=== PATIENT | female | born 1975 | race Caucasian/White ===

== ENCOUNTER 2020-01-31 12:17 | Outpatient (REF) | payer OTHER, SELFPAY ==
[2020-01-31 13:15] LABS: Alanine Aminotransferase 49 U/L (0-31); Albumin Level 3.5 g/dL (3.5-5.0); Alkaline Phosphatase 198 U/L (39-117); Anion Gap 15 (12-20); Aspartate Amino Transferase 40 U/L (5-31); Bilirubin Total 0.4 mg/dL (0.0-1.0); Blood Urea Nitrogen 29 mg/dL (9-16); Calcium 9.5 mg/dL (8.4-10.2); Carbon Dioxide 26 mmol/L (22-29); Chloride 96 mmol/L (96-108); Estimated Glomerular Filt Rate > 60; Glucose Random 98 mg/dL (60-115); Magnesium 1.9 mg/dL (1.6-2.6); Potassium 5.1 mmol/l (3.3-5.1); Sodium 132 mmol/L (135-145); Total Protein 7.6 g/dL (6.5-8.0); Triglycerides 169 mg/dL
[2020-02-01 17:57] LABS: Phosphorus 4.9 mg/dL (2.7-4.5)
== END 2020-01-31 12:18 | disposition home or self-care (01) ==
LOC: HO.HVNA 12:17
PROVIDERS: Visit Provider Physician Assistant Medical
DX: Z79.899 Other long term (current) drug therapy (principal)
CPT/HCPCS: 80053; 83735; 84100; 84134; 84478

== ENCOUNTER → 2020-02-15 13:19 | Outpatient (BNVA) | payer OTHER, SELFPAY | PROVIDERS: PCP Physician Assistant; Referring Provider Physician Assistant; Visit Provider Family Medicine Adult Medicine | DX: Z87.81 Personal history of (healed) traumatic fracture (principal); Z93.0 Tracheostomy status; Z93.1 Gastrostomy status; Z79.891 Long term (current) use of opiate analgesic; Z98.890 Other specified postprocedural states | CPT/HCPCS: 99212 ==

== ENCOUNTER → 2020-02-16 12:45 | Outpatient (BNVA) | payer SELFPAY | PROVIDERS: PCP Physician Assistant ==

== ENCOUNTER 2020-02-28 13:08 | Outpatient (REF) | payer OTHER, SELFPAY ==
[2020-02-28 14:09] LABS: Alanine Aminotransferase 59 U/L (0-31); Albumin Level 2.5 g/dL (3.5-5.0); Alkaline Phosphatase 261 U/L (39-117); Anion Gap 11 (12-20); Aspartate Amino Transferase 31 U/L (5-31); Bilirubin Total 0.6 mg/dL (0.0-1.0); Blood Urea Nitrogen 17 mg/dL (9-16); Calcium 7.8 mg/dL (8.4-10.2); Carbon Dioxide 23 mmol/L (22-29); Chloride 106 mmol/L (96-108); Estimated Glomerular Filt Rate > 60; Glucose Random 109 mg/dL (60-115); Potassium 3.7 mmol/l (3.3-5.1); Sodium 136 mmol/L (135-145); Triglycerides 124 mg/dL
[2020-02-29 12:31] LABS: Magnesium 1.7 mg/dL (1.6-2.6)
== END 2020-02-28 13:09 | disposition home or self-care (01) ==
LOC: HO.LNP 13:08
PROVIDERS: Visit Provider Surgery
DX: G72.81 Critical illness myopathy (principal)
CPT/HCPCS: 80053; 83735; 84100; 84134; 84478

== ENCOUNTER 2020-03-21 15:15 | Outpatient (REF) | payer OTHER, SELFPAY ==
[2020-03-21 15:24] LABS: MANUAL DIFF FLAG NO
[2020-03-21 15:42] LABS: Basophils Absolute Auto 0.1 X10*3/uL (0.0-0.2); Basophils Percent Auto 1.1 % (0-2); Eosinophils Absolute Auto 0.4 X10*3/uL (0.0-0.4); Eosinophils Percent Auto 4.4 % (0-4); Hemoglobin 8.8 g/dl (12.0-16.0); Imm Gran Abs Auto 0.02 X10*3/uL (0.00-0.03); Imm Gran Pct Auto 0.2 % (0.0-0.4); Lymphocytes Absolute Auto 3.6 X10*3/uL (1.2-4.9); Lymphocytes Percent Auto 39.6 % (20-40); Mean Corpuscular HGB Conc 31.4 g/dl (31.0-35.0); Mean Corpuscular Hemoglobin 28.3 pg (27.0-33.0); Mean Platelet Volume 12.6 fL (9.4-12.3); Monocytes Absolute Auto 0.6 X10*3/uL (0.1-1.2); Monocytes Percent Auto 6.2 % (2-11); Neutrophils Absolute Auto 4.4 X10*3/uL (2.0-8.3); Neutrophils Percent Auto 48.5 % (45-73); Platelet Count 303 X10*3/uL (160-400); Red Blood Count 3.11 X10*6/uL (4.20-5.50); Red Cell Distribution Width 18.6 % (11.0-16.0); White Blood Count 9.1 X10*3/uL (4.8-10.8)
[2020-03-21 16:01] LABS: Alanine Aminotransferase 34 U/L (0-31); Albumin Level 3.1 g/dL (3.5-5.0); Alkaline Phosphatase 237 U/L (39-117); Anion Gap 11 (12-20); Aspartate Amino Transferase 39 U/L (5-31); Bilirubin Direct 0.3 mg/dL (0.0-0.5); Bilirubin Total 0.4 mg/dL (0.0-1.0); Blood Urea Nitrogen 30 mg/dL (9-16); C Reactive Protein 0.68 mg/dL (< or = 0.50); Calcium 10.4 mg/dL (8.4-10.2); Carbon Dioxide 22 mmol/L (22-29); Chloride 105 mmol/L (96-108); Cholesterol 105 mg/dL; Estimated Glomerular Filt Rate > 60; Glucose Random 87 mg/dL (60-115); HDL Cholesterol 15 mg/dL; LDL Cholesterol Calculated 57 mg/dl; Magnesium 1.8 mg/dL (1.6-2.6); Potassium 4.6 mmol/l (3.3-5.1); Sodium 133 mmol/L (135-145); Total Protein 8.5 g/dL (6.5-8.0); Triglycerides 167 mg/dL
[2020-03-21 16:05] LABS: Vancomycin Trough 14.2 mcg/mL (10.0-20.0)
== END 2020-03-21 15:16 | disposition home or self-care (01) ==
LOC: HO.HVNA 15:15
PROVIDERS: Visit Provider Internal Medicine
DX: I33.0 Acute and subacute infective endocarditis (principal); M25.18 Fistula, other specified site; E43 Unspecified severe protein-calorie malnutrition
CPT/HCPCS: 36415; 80053; 80061; 80076; 80202; 82248; 83735; 84134; 85025; 86140

== ENCOUNTER 2020-03-30 15:04 | Outpatient (REF) | payer OTHER, SELFPAY ==
[2020-03-30 15:32] LABS: Basophils Absolute Auto 0.1 X10*3/uL (0.0-0.2); Eosinophils Absolute Auto 0.3 X10*3/uL (0.0-0.4); Eosinophils Percent Auto 4.3 % (0-4); Hematocrit 31.8 % (37-47); Hemoglobin 9.8 g/dl (12.0-16.0); Imm Gran Abs Auto 0.01 X10*3/uL (0.00-0.03); Imm Gran Pct Auto 0.1 % (0.0-0.4); Lymphocytes Percent Auto 43.8 % (20-40); Mean Corpuscular HGB Conc 30.8 g/dl (31.0-35.0); Mean Corpuscular Hemoglobin 27.8 pg (27.0-33.0); Mean Corpuscular Volume 90.3 fL (80-98); Monocytes Absolute Auto 0.4 X10*3/uL (0.1-1.2); Monocytes Percent Auto 6.2 % (2-11); Neutrophils Percent Auto 44.6 % (45-73); Platelet Count 248 X10*3/uL (160-400); Red Blood Count 3.52 X10*6/uL (4.20-5.50); Red Cell Distribution Width 18.1 % (11.0-16.0); SCAN SMEAR FLAG 1; White Blood Count 6.7 X10*3/uL (4.8-10.8)
[2020-03-30 15:33] LABS: MANUAL DIFF FLAG NO; PLT ABN DIST 1
[2020-03-30 16:04] LABS: Alanine Aminotransferase 25 U/L (0-31); Albumin Level 3.2 g/dL (3.5-5.0); Alkaline Phosphatase 188 U/L (39-117); Anion Gap 9 (12-20); Aspartate Amino Transferase 26 U/L (5-31); Bilirubin Direct 0.2 mg/dL (0.0-0.5); Bilirubin Total 0.3 mg/dL (0.0-1.0); Blood Urea Nitrogen 26 mg/dL (9-16); C Reactive Protein 0.48 mg/dL (< or = 0.50); Calcium 10.3 mg/dL (8.4-10.2); Carbon Dioxide 25 mmol/L (22-29); Chloride 104 mmol/L (96-108); Cholesterol 114 mg/dL; Estimated Glomerular Filt Rate > 60; Glucose Random 94 mg/dL (60-115); HDL Cholesterol 17 mg/dL; LDL Cholesterol Calculated 66 mg/dl; Magnesium 1.6 mg/dL (1.6-2.6); Phosphorus 3.8 mg/dL (2.7-4.5); Potassium 4.4 mmol/l (3.3-5.1); Sodium 134 mmol/L (135-145); Total Protein 8.1 g/dL (6.5-8.0); Triglycerides 158 mg/dL
[2020-03-30 16:06] LABS: Vancomycin Trough 11.1 mcg/mL (10.0-20.0)
== END 2020-03-30 15:05 | disposition home or self-care (01) ==
LOC: HO.HVNA 15:04
PROVIDERS: Visit Provider Surgery
DX: E46 Unspecified protein-calorie malnutrition (principal)
CPT/HCPCS: 36415; 80053; 80061; 80076; 80202; 82248; 83735; 84100; 84134; 85025; 86140

== ENCOUNTER 2020-04-03 14:59 | Outpatient (REF) | payer OTHER, SELFPAY ==
[2020-04-03 15:06] LABS: MANUAL DIFF FLAG NO
[2020-04-03 15:12] LABS: Basophils Absolute Auto 0.1 X10*3/uL (0.0-0.2); Basophils Percent Auto 1.3 % (0-2); Eosinophils Absolute Auto 0.2 X10*3/uL (0.0-0.4); Eosinophils Percent Auto 4.3 % (0-4); Hematocrit 32.5 % (37-47); Hemoglobin 10.1 g/dl (12.0-16.0); Imm Gran Abs Auto 0.01 X10*3/uL (0.00-0.03); Imm Gran Pct Auto 0.2 % (0.0-0.4); Lymphocytes Percent Auto 37.9 % (20-40); Mean Corpuscular HGB Conc 31.1 g/dl (31.0-35.0); Mean Corpuscular Hemoglobin 28.6 pg (27.0-33.0); Mean Corpuscular Volume 92.1 fL (80-98); Mean Platelet Volume 13.4 fL (9.4-12.3); Monocytes Absolute Auto 0.4 X10*3/uL (0.1-1.2); Neutrophils Absolute Auto 2.6 X10*3/uL (2.0-8.3); Neutrophils Percent Auto 49.3 % (45-73); Platelet Count 175 X10*3/uL (160-400); Red Blood Count 3.53 X10*6/uL (4.20-5.50); Red Cell Distribution Width 17.6 % (11.0-16.0); White Blood Count 5.3 X10*3/uL (4.8-10.8)
[2020-04-03 15:50] LABS: Alanine Aminotransferase 26 U/L (0-31); Albumin Level 3.4 g/dL (3.5-5.0); Alkaline Phosphatase 204 U/L (39-117); Anion Gap 11 (12-20); Aspartate Amino Transferase 27 U/L (5-31); Bilirubin Total 0.3 mg/dL (0.0-1.0); Blood Urea Nitrogen 28 mg/dL (9-16); C Reactive Protein 0.43 mg/dL (< or = 0.50); Carbon Dioxide 24 mmol/L (22-29); Chloride 104 mmol/L (96-108); Estimated Glomerular Filt Rate > 60; Glucose Random 95 mg/dL (60-115); Potassium 4.6 mmol/l (3.3-5.1); Sodium 134 mmol/L (135-145); Total Protein 8.2 g/dL (6.5-8.0)
[2020-04-03 15:57] LABS: Calcium 10.6 mg/dL (8.4-10.2)
[2020-04-04 18:27] LABS: Magnesium 1.8 mg/dL (1.6-2.6); Phosphorus 3.9 mg/dL (2.7-4.5); Triglycerides 151 mg/dL
== END 2020-04-03 15:00 | disposition home or self-care (01) ==
LOC: HO.LNP 14:59
PROVIDERS: Visit Provider Surgery
DX: I33.0 Acute and subacute infective endocarditis (principal); I26.90 Septic pulmonary embolism without acute cor pulmonale; A49.02 Methicillin resistant Staphylococcus aureus infection, unspecified site; E03.9 Hypothyroidism, unspecified; M25.50 Pain in unspecified joint
CPT/HCPCS: 80053; 83735; 84100; 84134; 84478; 85025; 86140

== ENCOUNTER → 2020-04-04 14:23 | Outpatient (BNVA) | payer OTHER, SELFPAY | PROVIDERS: PCP Physician Assistant; Visit Provider Family Medicine Adult Medicine | DX: M96.1 Postlaminectomy syndrome, not elsewhere classified (principal) | CPT/HCPCS: 99212 ==

== ENCOUNTER 2020-04-05 15:35 | Outpatient (REF) | payer OTHER, SELFPAY ==
[2020-04-05 16:15] LABS: C Reactive Protein 0.47 mg/dL (< or = 0.50)
[2020-04-05 16:19] LABS: Vancomycin Trough 11.2 mcg/mL (10.0-20.0)
[2020-04-06 11:17] LABS: Anion Gap 14 (12-20); Blood Urea Nitrogen 24 mg/dL (9-16); Carbon Dioxide 18 mmol/L (22-29); Chloride 106 mmol/L (96-108); Estimated Glomerular Filt Rate > 60; Glucose Random 77 mg/dL (60-115); Potassium 4.7 mmol/l (3.3-5.1); Sodium 133 mmol/L (135-145)
== END 2020-04-05 15:36 | disposition home or self-care (01) ==
LOC: HO.LNP 15:35
PROVIDERS: Visit Provider Internal Medicine
DX: I33.0 Acute and subacute infective endocarditis (principal)
CPT/HCPCS: 80051; 80202; 82565; 82947; 84520; 86140

== ENCOUNTER 2020-04-10 15:38 | Outpatient (REF) | payer OTHER, SELFPAY ==
[2020-04-10 15:49] LABS: Eosinophils Absolute Auto 0.2 X10*3/uL (0.0-0.4); Imm Gran Abs Auto 0.01 X10*3/uL (0.00-0.03); Imm Gran Pct Auto 0.2 % (0.0-0.4); MANUAL DIFF FLAG SCAN; Red Cell Distribution Width 16.6 % (11.0-16.0); SCAN SMEAR FLAG 1
[2020-04-10 15:51] LABS: Basophils Absolute Auto 0.1 X10*3/uL (0.0-0.2); Basophils Percent Auto 1.3 % (0-2); Eosinophils Percent Auto 4.4 % (0-4); Hematocrit 33.4 % (37-47); Hemoglobin 10.5 g/dl (12.0-16.0); Lymphocytes Absolute Auto 2.2 X10*3/uL (1.2-4.9); Lymphocytes Percent Auto 44.9 % (20-40); Mean Corpuscular HGB Conc 31.4 g/dl (31.0-35.0); Mean Corpuscular Hemoglobin 28.6 pg (27.0-33.0); Monocytes Absolute Auto 0.3 X10*3/uL (0.1-1.2); Monocytes Percent Auto 5.8 % (2-11); Neutrophils Absolute Auto 2.1 X10*3/uL (2.0-8.3); Neutrophils Percent Auto 43.4 % (45-73); Platelet Count 170 X10*3/uL (160-400); Red Blood Count 3.67 X10*6/uL (4.20-5.50); White Blood Count 4.8 X10*3/uL (4.8-10.8)
[2020-04-10 16:05] LABS: PLT ABN DIST 1
[2020-04-10 16:10] LABS: SLIDE REVIEW VERIFIED
[2020-04-10 16:30] LABS: Alanine Aminotransferase 15 U/L (0-31); Albumin Level 3.2 g/dL (3.5-5.0); Alkaline Phosphatase 178 U/L (39-117); Anion Gap 12 (12-20); Aspartate Amino Transferase 20 U/L (5-31); Bilirubin Direct 0.2 mg/dL (0.0-0.5); Bilirubin Total 0.3 mg/dL (0.0-1.0); Blood Urea Nitrogen 27 mg/dL (9-16); Calcium 9.5 mg/dL (8.4-10.2); Carbon Dioxide 27 mmol/L (22-29); Chloride 102 mmol/L (96-108); Estimated Glomerular Filt Rate > 60; Glucose Random 89 mg/dL (60-115); Magnesium 1.9 mg/dL (1.6-2.6); Potassium 4.6 mmol/l (3.3-5.1); Sodium 136 mmol/L (135-145); Total Protein 7.4 g/dL (6.5-8.0); Triglycerides 125 mg/dL
[2020-04-11 19:21] LABS: C Reactive Protein 0.45 mg/dL (< or = 0.50); Phosphorus 4.4 mg/dL (2.7-4.5)
== END 2020-04-10 15:39 | disposition home or self-care (01) ==
LOC: HO.LNP 15:38
PROVIDERS: Visit Provider Surgery
DX: I33.0 Acute and subacute infective endocarditis (principal)
CPT/HCPCS: 80053; 80076; 82248; 83735; 84100; 84134; 84478; 85025; 86140

== ENCOUNTER 2020-04-13 15:58 | Outpatient (REF) | payer OTHER, SELFPAY ==
[2020-04-13 17:00] LABS: T4 Thyroxine 6.7 ug/dL (4.5-12.0); Thyroid Stimulating Hormone 3.65 uIU/mL (0.32-4.0)
[2020-04-14 14:06] LABS: Triiodothyronine T3 Total 123 ng/dL (76-181)
== END 2020-04-13 15:59 | disposition home or self-care (01) ==
LOC: HO.LNP 15:58
PROVIDERS: Referring Provider Internal Medicine; Visit Provider Physician Assistant
DX: I33.0 Acute and subacute infective endocarditis (principal); A49.02 Methicillin resistant Staphylococcus aureus infection, unspecified site; I26.90 Septic pulmonary embolism without acute cor pulmonale
CPT/HCPCS: 84436; 84443; 84480

== ENCOUNTER 2020-04-17 17:06 | Outpatient (REF) | payer OTHER, SELFPAY ==
[2020-04-17 17:15] LABS: Hematocrit 34.6 % (37-47); Imm Gran Abs Auto 0.01 X10*3/uL (0.00-0.03); Imm Gran Pct Auto 0.2 % (0.0-0.4); MANUAL DIFF FLAG SCAN; Mean Corpuscular HGB Conc 31.8 g/dl (31.0-35.0); Mean Platelet Volume 13.2 fL (9.4-12.3); Neutrophils Absolute Auto 2.8 X10*3/uL (2.0-8.3); SCAN SMEAR FLAG 1
[2020-04-17 17:17] LABS: Basophils Percent Auto 0.7 % (0-2); Eosinophils Absolute Auto 0.1 X10*3/uL (0.0-0.4); Eosinophils Percent Auto 2.5 % (0-4); Lymphocytes Absolute Auto 2.3 X10*3/uL (1.2-4.9); Lymphocytes Percent Auto 40.9 % (20-40); Mean Corpuscular Hemoglobin 28.1 pg (27.0-33.0); Mean Corpuscular Volume 88.5 fL (80-98); Monocytes Absolute Auto 0.3 X10*3/uL (0.1-1.2); Monocytes Percent Auto 5.5 % (2-11); Neutrophils Percent Auto 50.2 % (45-73); Platelet Count 195 X10*3/uL (160-400); Red Blood Count 3.91 X10*6/uL (4.20-5.50); Red Cell Distribution Width 15.3 % (11.0-16.0); White Blood Count 5.6 X10*3/uL (4.8-10.8)
[2020-04-17 17:18] LABS: PLT ABN DIST 1
[2020-04-17 17:19] LABS: SLIDE REVIEW VERIFIED
[2020-04-17 17:58] LABS: Alanine Aminotransferase 9 U/L (0-31); Albumin Level 3.2 g/dL (3.5-5.0); Alkaline Phosphatase 168 U/L (39-117); Anion Gap 14 (12-20); Aspartate Amino Transferase 15 U/L (5-31); Bilirubin Direct 0.2 mg/dL (0.0-0.5); Bilirubin Total 0.4 mg/dL (0.0-1.0); Blood Urea Nitrogen 24 mg/dL (9-16); Calcium 9.6 mg/dL (8.4-10.2); Carbon Dioxide 28 mmol/L (22-29); Chloride 97 mmol/L (96-108); Estimated Glomerular Filt Rate > 60; Glucose Random 83 mg/dL (60-115); Magnesium 1.8 mg/dL (1.6-2.6); Phosphorus 4.9 mg/dL (2.7-4.5); Potassium 4.3 mmol/l (3.3-5.1); Sodium 135 mmol/L (135-145); Total Protein 7.6 g/dL (6.5-8.0); Triglycerides 130 mg/dL
== END 2020-04-17 17:07 | disposition home or self-care (01) ==
LOC: HO.LNP 17:06
PROVIDERS: Visit Provider Surgery
DX: I33.0 Acute and subacute infective endocarditis (principal)
CPT/HCPCS: 80053; 80076; 82248; 83735; 84100; 84134; 84478; 85025

== ENCOUNTER 2020-04-24 14:06 | Outpatient (REF) | payer OTHER, SELFPAY ==
[2020-04-24 14:11] LABS: MANUAL DIFF FLAG NO
[2020-04-24 14:33] LABS: Basophils Absolute Auto 0.1 X10*3/uL (0.0-0.2); Basophils Percent Auto 0.9 % (0-2); Eosinophils Absolute Auto 0.2 X10*3/uL (0.0-0.4); Eosinophils Percent Auto 3.4 % (0-4); Hematocrit 32.8 % (37-47); Hemoglobin 10.2 g/dl (12.0-16.0); Imm Gran Abs Auto 0.01 X10*3/uL (0.00-0.03); Imm Gran Pct Auto 0.2 % (0.0-0.4); Lymphocytes Percent Auto 34.9 % (20-40); Mean Corpuscular HGB Conc 31.1 g/dl (31.0-35.0); Mean Corpuscular Hemoglobin 27.9 pg (27.0-33.0); Mean Corpuscular Volume 89.6 fL (80-98); Mean Platelet Volume 12.9 fL (9.4-12.3); Monocytes Absolute Auto 0.4 X10*3/uL (0.1-1.2); Neutrophils Absolute Auto 3.2 X10*3/uL (2.0-8.3); Neutrophils Percent Auto 54.6 % (45-73); Platelet Count 217 X10*3/uL (160-400); Red Blood Count 3.66 X10*6/uL (4.20-5.50); Red Cell Distribution Width 14.7 % (11.0-16.0); White Blood Count 5.9 X10*3/uL (4.8-10.8)
[2020-04-24 15:09] LABS: Alanine Aminotransferase < 6 U/L (0-31); Albumin Level 3.2 g/dL (3.5-5.0); Alkaline Phosphatase 151 U/L (39-117); Anion Gap 11 (12-20); Aspartate Amino Transferase 9 U/L (5-31); Bilirubin Direct 0.3 mg/dL (0.0-0.5); Bilirubin Total 0.4 mg/dL (0.0-1.0); Blood Urea Nitrogen 28 mg/dL (9-16); Calcium 8.6 mg/dL (8.4-10.2); Carbon Dioxide 29 mmol/L (22-29); Chloride 101 mmol/L (96-108); Estimated Glomerular Filt Rate > 60; Glucose Random 80 mg/dL (60-115); Potassium 4.9 mmol/l (3.3-5.1); Sodium 136 mmol/L (135-145); Total Protein 7.3 g/dL (6.5-8.0); Triglycerides 111 mg/dL
== END 2020-04-24 14:07 | disposition home or self-care (01) ==
LOC: HO.LNP 14:06
PROVIDERS: Visit Provider Surgery
DX: I33.0 Acute and subacute infective endocarditis (principal)
CPT/HCPCS: 80053; 80076; 82248; 83735; 84134; 84478; 85025

== ENCOUNTER 2020-05-03 13:11 | Outpatient (REF) | payer OTHER, SELFPAY ==
[2020-05-03 13:14] LABS: MANUAL DIFF FLAG NO
[2020-05-03 13:21] LABS: Basophils Percent Auto 0.8 % (0-2); Eosinophils Absolute Auto 0.1 X10*3/uL (0.0-0.4); Eosinophils Percent Auto 2.2 % (0-4); Hematocrit 30.6 % (37-47); Hemoglobin 9.8 g/dl (12.0-16.0); Imm Gran Abs Auto 0.01 X10*3/uL (0.00-0.03); Imm Gran Pct Auto 0.2 % (0.0-0.4); Lymphocytes Absolute Auto 1.7 X10*3/uL (1.2-4.9); Lymphocytes Percent Auto 33.7 % (20-40); Mean Corpuscular Hemoglobin 27.6 pg (27.0-33.0); Mean Corpuscular Volume 86.2 fL (80-98); Mean Platelet Volume 11.9 fL (9.4-12.3); Monocytes Absolute Auto 0.3 X10*3/uL (0.1-1.2); Monocytes Percent Auto 6.5 % (2-11); Neutrophils Absolute Auto 2.8 X10*3/uL (2.0-8.3); Neutrophils Percent Auto 56.6 % (45-73); Platelet Count 222 X10*3/uL (160-400); Red Blood Count 3.55 X10*6/uL (4.20-5.50); Red Cell Distribution Width 13.9 % (11.0-16.0); White Blood Count 4.9 X10*3/uL (4.8-10.8)
[2020-05-03 14:44] LABS: Alanine Aminotransferase < 6 U/L (0-31); Albumin Level 3.2 g/dL (3.5-5.0); Alkaline Phosphatase 191 U/L (39-117); Anion Gap 13 (12-20); Aspartate Amino Transferase 10 U/L (5-31); Bilirubin Direct 0.2 mg/dL (0.0-0.5); Bilirubin Total 0.5 mg/dL (0.0-1.0); Blood Urea Nitrogen 28 mg/dL (9-16); Calcium 8.4 mg/dL (8.4-10.2); Carbon Dioxide 27 mmol/L (22-29); Chloride 100 mmol/L (96-108); Estimated Glomerular Filt Rate > 60; Glucose Random 85 mg/dL (60-115); Magnesium 1.9 mg/dL (1.6-2.6); Potassium 5.1 mmol/L (3.3-5.1); Sodium 135 mmol/L (135-145); Total Protein 7.3 g/dL (6.5-8.0); Triglycerides 120 mg/dL
[2020-05-04 11:47] LABS: C Reactive Protein 2.26 mg/dL (< or = 0.50); Phosphorus 3.9 mg/dL (2.7-4.5)
== END 2020-05-03 13:12 | disposition home or self-care (01) ==
LOC: HO.LNP 13:11
PROVIDERS: Visit Provider Surgery
DX: I33.0 Acute and subacute infective endocarditis (principal)
CPT/HCPCS: 80053; 80076; 82248; 83735; 84100; 84134; 84478; 85025; 86140

== ENCOUNTER 2020-05-10 16:58 | Outpatient (REF) | payer OTHER, SELFPAY ==
[2020-05-10 17:05] LABS: Glucose Urine UA NEG (NEG); Leukocyte Esterase Urine NEG (NEG); Nitrite Urine NEG (NEG); PH 5.5 (5.0-8.0); Specific Gravity - Urine 1.015 (1.005-1.025); Urine Blood TRACE (NEG); Urine Ketones NEG (NEG); Urine Protein NEG (NEG-TRACE)
[2020-05-10 17:06] LABS: Appearance Urine CLEAR; Color Urine YELLOW
[2020-05-10 17:37] LABS: RBC Urine 0-2 /HPF (0); Squamous Epithelial Cell Urine TRACE /LPF; WBC Urine 0-2 /HPF (0-4)
== END 2020-05-10 16:59 | disposition home or self-care (01) ==
LOC: HO.LNP 16:58
PROVIDERS: Visit Provider Physician Assistant
DX: R30.0 Dysuria (principal); R35.0 Frequency of micturition
CPT/HCPCS: 81001

== ENCOUNTER 2020-05-17 15:41 | Outpatient (REF) | payer OTHER, SELFPAY ==
[2020-05-17 15:47] LABS: MANUAL DIFF FLAG NO
[2020-05-17 15:50] LABS: Basophils Percent Auto 0.7 % (0-2); Hematocrit 28.4 % (37-47); Hemoglobin 9.2 g/dl (12.0-16.0); Imm Gran Abs Auto 0.01 X10*3/uL (0.00-0.03); Imm Gran Pct Auto 0.2 % (0.0-0.4); Lymphocytes Absolute Auto 1.5 X10*3/uL (1.2-4.9); Lymphocytes Percent Auto 37.3 % (20-40); Mean Corpuscular HGB Conc 32.4 g/dl (31.0-35.0); Mean Corpuscular Hemoglobin 26.7 pg (27.0-33.0); Mean Corpuscular Volume 82.6 fL (80-98); Mean Platelet Volume 11.9 fL (9.4-12.3); Monocytes Absolute Auto 0.2 X10*3/uL (0.1-1.2); Monocytes Percent Auto 5.4 % (2-11); Neutrophils Absolute Auto 2.3 X10*3/uL (2.0-8.3); Neutrophils Percent Auto 55.4 % (45-73); Platelet Count 232 X10*3/uL (160-400); Red Blood Count 3.44 X10*6/uL (4.20-5.50); Red Cell Distribution Width 13.6 % (11.0-16.0); White Blood Count 4.1 X10*3/uL (4.8-10.8)
[2020-05-17 16:22] LABS: Alanine Aminotransferase < 6 U/L (0-31); Albumin Level 3.4 g/dL (3.5-5.0); Alkaline Phosphatase 217 U/L (39-117); Anion Gap 15 (12-20); Aspartate Amino Transferase 6 U/L (5-31); Bilirubin Direct 0.2 mg/dL (0.0-0.5); Bilirubin Total 0.4 mg/dL (0.0-1.0); Blood Urea Nitrogen 24 mg/dL (9-16); C Reactive Protein 1.34 mg/dL (< or = 0.50); Calcium 8.5 mg/dL (8.4-10.2); Carbon Dioxide 26 mmol/L (22-29); Chloride 100 mmol/L (96-108); Estimated Glomerular Filt Rate > 60; Glucose Random 90 mg/dL (60-115); Phosphorus 3.7 mg/dL (2.7-4.5); Potassium 4.5 mmol/L (3.3-5.1); Sodium 136 mmol/L (135-145); Total Protein 7.3 g/dL (6.5-8.0); Triglycerides 93 mg/dL
== END 2020-05-17 15:42 | disposition home or self-care (01) ==
LOC: HO.LNP 15:41
PROVIDERS: Visit Provider Surgery
DX: I33.0 Acute and subacute infective endocarditis (principal)
CPT/HCPCS: 80053; 80076; 82248; 83735; 84100; 84134; 84478; 85025; 86140

== ENCOUNTER → 2021-01-16 10:18 | Outpatient (BNVA) | payer OTHER, SELFPAY | PROVIDERS: PCP Physician Assistant; Visit Provider Family Medicine Adult Medicine | DX: M96.1 Postlaminectomy syndrome, not elsewhere classified (principal) | CPT/HCPCS: 99212 ==

== ENCOUNTER → 2021-01-30 14:19 | Outpatient (BNVA) | payer OTHER, SELFPAY | PROVIDERS: Visit Provider Family Medicine Adult Medicine | DX: M96.1 Postlaminectomy syndrome, not elsewhere classified (principal); Z93.3 Colostomy status; Z98.890 Other specified postprocedural states; Z79.899 Other long term (current) drug therapy | CPT/HCPCS: 99212 ==

== ENCOUNTER → 2021-03-19 08:00 | Outpatient (BNVA) | payer OTHER, SELFPAY | PROVIDERS: PCP Physician Assistant; Visit Provider Anesthesiology | DX: Z51.81 Encounter for therapeutic drug level monitoring (principal); K57.20 Diverticulitis of large intestine with perforation and abscess without bleeding; K27.9 Peptic ulcer, site unspecified, unspecified as acute or chronic, without hemorrhage or perforation; F32.9 Major depressive disorder, single episode, unspecified; Z98.890 Other specified postprocedural states | CPT/HCPCS: 99212 ==

== ENCOUNTER → 2021-04-18 16:20 | Outpatient (BNVA) | payer OTHER, SELFPAY | PROVIDERS: PCP Physician Assistant; Visit Provider Anesthesiology | DX: K57.20 Diverticulitis of large intestine with perforation and abscess without bleeding (principal); K27.9 Peptic ulcer, site unspecified, unspecified as acute or chronic, without hemorrhage or perforation; Z79.891 Long term (current) use of opiate analgesic | CPT/HCPCS: 99212 ==

== ENCOUNTER → 2021-05-16 16:00 | Outpatient (BNVA) | payer OTHER, SELFPAY | PROVIDERS: PCP Physician Assistant; Visit Provider Anesthesiology | DX: Z79.891 Long term (current) use of opiate analgesic (principal) | CPT/HCPCS: 99211 ==

== ENCOUNTER → 2021-06-13 17:19 | Outpatient (BNVA) | payer OTHER, SELFPAY | PROVIDERS: PCP Physician Assistant; Visit Provider Anesthesiology | DX: Z51.81 Encounter for therapeutic drug level monitoring (principal); F11.20 Opioid dependence, uncomplicated | CPT/HCPCS: 99211 ==

== ENCOUNTER → 2021-07-09 15:13 | Outpatient (BNVA) | payer OTHER, SELFPAY | PROVIDERS: PCP Physician Assistant; Visit Provider Anesthesiology | DX: Z51.81 Encounter for therapeutic drug level monitoring (principal); F11.20 Opioid dependence, uncomplicated | CPT/HCPCS: 99212 ==

== ENCOUNTER → 2021-08-08 16:07 | Outpatient (BNVA) | payer OTHER, SELFPAY | PROVIDERS: PCP Physician Assistant; Visit Provider Anesthesiology | DX: Z13.89 Encounter for screening for other disorder (principal) ==

== ENCOUNTER → 2021-09-05 15:48 | Outpatient (BNVA) | payer OTHER, SELFPAY | PROVIDERS: PCP Physician Assistant; Visit Provider Anesthesiology | DX: Z79.891 Long term (current) use of opiate analgesic (principal) | CPT/HCPCS: 99211 ==

== ENCOUNTER → 2021-10-02 15:59 | Outpatient (BNVA) | payer OTHER, SELFPAY | PROVIDERS: PCP Physician Assistant; Visit Provider Anesthesiology | DX: Z79.891 Long term (current) use of opiate analgesic (principal) | CPT/HCPCS: 99211 ==

== ENCOUNTER → 2021-11-07 16:22 | Outpatient (BNVA) | payer OTHER, SELFPAY | PROVIDERS: PCP Physician Assistant Medical; Visit Provider Anesthesiology | DX: G56.03 Carpal tunnel syndrome, bilateral upper limbs (principal); G56.23 Lesion of ulnar nerve, bilateral upper limbs; K57.20 Diverticulitis of large intestine with perforation and abscess without bleeding; K27.9 Peptic ulcer, site unspecified, unspecified as acute or chronic, without hemorrhage or perforation; F32.9 Major depressive disorder, single episode, unspecified; Z79.891 Long term (current) use of opiate analgesic | CPT/HCPCS: 99212 ==

== ENCOUNTER → 2021-12-12 14:32 | Outpatient (BNVA) | payer OTHER, SELFPAY | PROVIDERS: PCP Physician Assistant Medical; Visit Provider Anesthesiology | DX: G56.03 Carpal tunnel syndrome, bilateral upper limbs (principal); G56.23 Lesion of ulnar nerve, bilateral upper limbs; K57.20 Diverticulitis of large intestine with perforation and abscess without bleeding; K27.9 Peptic ulcer, site unspecified, unspecified as acute or chronic, without hemorrhage or perforation; F32.9 Major depressive disorder, single episode, unspecified; Z79.891 Long term (current) use of opiate analgesic | CPT/HCPCS: 99212 ==

== ENCOUNTER → 2022-02-06 16:10 | Outpatient (BNVA) | payer OTHER, SELFPAY | PROVIDERS: PCP Physician Assistant Medical; Visit Provider Anesthesiology | DX: Z51.81 Encounter for therapeutic drug level monitoring (principal); F11.20 Opioid dependence, uncomplicated | CPT/HCPCS: 99211 ==

== ENCOUNTER → 2022-03-06 16:17 | Outpatient (BNVA) | payer MEDICARE, MEDICAID, OTHER, SELFPAY | PROVIDERS: PCP Physician Assistant Medical; Visit Provider Anesthesiology | DX: Z79.891 Long term (current) use of opiate analgesic (principal) | CPT/HCPCS: 99211 ==

== ENCOUNTER → 2022-04-08 16:09 | Outpatient (BNVA) | payer MEDICARE, MEDICAID, SELFPAY | PROVIDERS: PCP Physician Assistant Medical; Visit Provider Anesthesiology | DX: Z51.81 Encounter for therapeutic drug level monitoring (principal); F11.20 Opioid dependence, uncomplicated; G56.03 Carpal tunnel syndrome, bilateral upper limbs; G56.23 Lesion of ulnar nerve, bilateral upper limbs; K57.20 Diverticulitis of large intestine with perforation and abscess without bleeding; K27.9 Peptic ulcer, site unspecified, unspecified as acute or chronic, without hemorrhage or perforation; F32.9 Major depressive disorder, single episode, unspecified; Z98.890 Other specified postprocedural states | CPT/HCPCS: 99212 ==

== ENCOUNTER → 2022-05-22 11:53 | Outpatient (BNVA) | payer MEDICARE, MEDICAID, SELFPAY | PROVIDERS: PCP Physician Assistant Medical; Visit Provider Anesthesiology | DX: G56.03 Carpal tunnel syndrome, bilateral upper limbs (principal); G56.23 Lesion of ulnar nerve, bilateral upper limbs; K57.20 Diverticulitis of large intestine with perforation and abscess without bleeding; K27.9 Peptic ulcer, site unspecified, unspecified as acute or chronic, without hemorrhage or perforation; F32.9 Major depressive disorder, single episode, unspecified; Z79.891 Long term (current) use of opiate analgesic | CPT/HCPCS: 99212 ==

== ENCOUNTER → 2022-07-22 15:15 | Outpatient (BNVA) | payer MEDICARE, MEDICAID, SELFPAY | PROVIDERS: PCP Physician Assistant Medical; Visit Provider Anesthesiology | DX: Z51.81 Encounter for therapeutic drug level monitoring (principal); F11.20 Opioid dependence, uncomplicated; G56.03 Carpal tunnel syndrome, bilateral upper limbs; G56.23 Lesion of ulnar nerve, bilateral upper limbs; K57.20 Diverticulitis of large intestine with perforation and abscess without bleeding; K27.9 Peptic ulcer, site unspecified, unspecified as acute or chronic, without hemorrhage or perforation; F32.9 Major depressive disorder, single episode, unspecified; Z98.890 Other specified postprocedural states | CPT/HCPCS: 99212 ==

== ENCOUNTER → 2022-08-20 15:19 | Outpatient (BNVA) | payer MEDICARE, MEDICAID, SELFPAY | PROVIDERS: PCP Physician Assistant Medical; Visit Provider Anesthesiology | DX: Z79.891 Long term (current) use of opiate analgesic (principal) | CPT/HCPCS: 99211 ==

== ENCOUNTER → 2022-09-18 14:57 | Outpatient (BNVA) | payer MEDICARE, MEDICAID, SELFPAY | PROVIDERS: PCP Physician Assistant Medical; Visit Provider Anesthesiology | DX: Z51.81 Encounter for therapeutic drug level monitoring (principal); F11.20 Opioid dependence, uncomplicated; K57.20 Diverticulitis of large intestine with perforation and abscess without bleeding; K27.9 Peptic ulcer, site unspecified, unspecified as acute or chronic, without hemorrhage or perforation; F32.9 Major depressive disorder, single episode, unspecified; G89.4 Chronic pain syndrome; Z98.890 Other specified postprocedural states | CPT/HCPCS: 99212 ==

== ENCOUNTER 2022-10-16 15:00 | Outpatient (AMB) | payer MEDICARE, MEDICAID, SELFPAY ==
--- NOTE | 2022-10-16 15:05 | MHC.OFFVIS ---
Intake Vital Signs 10/16/22 15:17 Height 5 ft 4 in BP 126/85 Blood Pressure Location Lt brachial Position Sitting Pulse 95 Pulse Source Pulse Oximeter Pulse Oximetry (%) 95 Oxygen Delivery Method Room Air Intake Visit Reasons: Pill count, counted and correct Intake Note: Pt here for patch count. She presents both Fent 100mcg and 25mcg, both currently affixed to pt, with #6 patches of both/should have #6 of both Fent 25mcg and 100mcg patches. She states pain is slightly elevated today at 6/10 pain. Allergies Sulfa (Sulfonamide Antibiotics) [SULFA (SULFONAMIDE ANTIBIOTICS)] Allergy (Unknown, Verified 10/16/22 15:17) UNKNOWN Medication List - Last Reconciled 10/16/22 by Marjorie Quarles RN albuterol sulfate 90 mcg/actuation (ProAir HFA) 2 puffs inhalation Q6H PRN fentanyl 25 mcg/hr 1 patch transdermal Q72H 30 days fentanyl 100 mcg/hr 1 patch topical Q72H 30 days gabapentin 300 mg feeding tube BID hydromorphone 2 mg PO Q6H PRN 14 days hydroxyzine HCl 25 mg PO BEDTIME PRN levothyroxine 100 mcg intravenously 3 times/week; lorazepam (Lorazepam Intensol) 0.5 mg PO TID PRN mirtazapine (Remeron SolTab) 30 mg PO DAILY naloxone 4 mg/actuation 4 mg intranasal Q3M PRN 1 day ondansetron HCl 8 mg PO Q4H PRN pantoprazole 40 mg IV DAILY HPI HPI Comments History of Present Illness Details is in the office today to refill her opioid medications and the discuss further management.? She presented for the film count.She presented today with 6 films of fentanyl patches 100 mcg? she suppose to have 6 patches , and she suppose to have 6 patches of the fentanyl 25 mcg? she also presented 6 patches. Therefore her pain count to correct. She continues to be under observation abdominal surgery team at [facility]. She is reduced with her TPN to every other night she is taking more oral food. Prior: ?She had multiple abdominal surgeries.? This resulted in abdominal abscess and resection of the larger portions of extend did intestines.? 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 She cannot consume foot over the mouth.? She is taking TPN tube feeds.? She is able to take opioids transdermal.? ?H/o compressions fracture of T7 - untreated due to high risk of the infection. She is under care of Dr. Mcintyre, general surgeon from [facility]. [facility] Medical History (Updated 09/19/22 @ 07:33 by Farhat Julien MD) Colostomy in place Failed back syndrome, lumbar Surgical History (Updated 01/30/21 @ 15:10 by Selvin aPrikh DO) History of abdominal surgery History of cystoscopy History of endometriosis History of liver injury History of lumbar surgery History of lumbar surgery History of mandibular surgery History of surgery Family History (Updated 02/01/20 @ 11:30 by Nakia Miner Nanette) Father Lung cancer Mother COPD (chronic obstructive pulmonary disease) CAD (coronary artery disease) CHF (congestive heart failure) Diabetes Sister Automobile accident Son Autoimmune disease Social History (Updated 02/15/20 @ 14:06 by Selvin Parikh DO) Household Members Other:: 16 yo son Current occupation: unable to work since 12/2018 Review of Systems Const All systems reviewed & are unremarkable except as noted in HPI and below Physical Exam Vital Signs: Last Vital Signs Pulse 95 10/16/22 15:17 BP 126/85 10/16/22 15:17 Pulse Ox 95 10/16/22 15:17 Oxygen Delivery Method Room Air 10/16/22 15:17 Const General: comfortable, no acute distress, well developed, alert and awake Eyes Pupils: Equal, round and reactive pupils present EOM: EOMs intact bilaterally Chest Chest palpation & inspection: normal inspection of the chest Resp Effort & Inspection: normal respiratory effort, able to speak in complete sentences, normal respiratory pattern, no audible wheezes and no cough Cardio Jugular venous distension: no JVD GI Inspection: No normal to inspection, Yes G-tube present, Yes J-tube present and Yes other (Collection bag which is draining fistula on the anterior abdomen right to t) Back/Spine/Pelvis Other: tenderness on palpation in paraspinal spinal region in lumbar spine and cervical spine, most severe tenderness of palpation in the projection of the thoracic spine in the T7 approximate interval. Percussion of the approximate T7 vertebra is painful. Loading test is positive. Range of motion in lumbar spine is limited [place] test is negative bilaterally. Neuro Cranial nerves: Yes Equal, round and reactive pupils present Psych Speech and movement: Normal speech and movement present Affect: normal affect Attitude: cooperative Thought process: Normal thought process present Thought content: Normal thought content present Insight: Good insight present (Psych) Judgement: Good judgement present (Psych) Assessment & Plan Assessment & Plan (1) Perforated diverticulum of large intestine: Code(s): K57.20 - Diverticulitis of large intestine with perforation and abscess without bleeding (2) PUD (peptic ulcer disease): Code(s): K27.9 - Peptic ulcer, site unspecified, unspecified as acute or chronic, without hemorrhage or perforation (3) History of lumbar surgery: Code(s): Z98.890 - Other specified postprocedural states (4) History of abdominal surgery: Code(s): Z98.890 - Other specified postprocedural states (5) Depression: Code(s): F32.9 - Major depressive disorder, single episode, unspecified (6) Chronic pain syndrome: Code(s): G89.4 - Chronic pain syndrome Plan This patient presents a challenge for current management since her opioid doses are exuberant and close to 500 of MME. We are going to continue with 125 mcg an hour fentanyl patch comprised of 2 patches 1 is 100 the other is 25. She had one surgery to close one GI fistula and yet anothe one needs to be closed few weeks ahead. She almost converted from TPN to oral foot intake. Her fistula continues to drain bile and hymus I will continue her opioid medications. they are due on 11/06/2022 Medications: Refilled fentanyl 25 mcg/hr Partial Fill only upon patient request. 1 patch transdermal Q72H 30 days 10 ea 0RF fentanyl 100 mcg/hr 1 patch topical Q72H 30 days 10 ea 0RF M96.1 - Postlaminectomy syndrome, not elsewhere classified, Z93.3 - Colostomy status Coding Level of Care Code Est Pt Level 4 (42926) Diagnoses Perforated diverticulum of large intestine K57.20 PUD (peptic ulcer disease) K27.9 History of lumbar surgery Z98.890 History of abdominal surgery Z98.890 Depression F32.9 Chronic pain syndrome G89.4
[2022-10-16 15:17] VITALS: BP 126/85; PULSE 95; O2SAT 95
== END 2022-10-16 15:21 | disposition home or self-care (01) ==
PROVIDERS: PCP Physician Assistant Medical; Visit Provider Anesthesiology
DX: K57.20 Diverticulitis of large intestine with perforation and abscess without bleeding (principal); K27.9 Peptic ulcer, site unspecified, unspecified as acute or chronic, without hemorrhage or perforation; Z98.890 Other specified postprocedural states; F32.9 Major depressive disorder, single episode, unspecified; G89.4 Chronic pain syndrome
CPT/HCPCS: 99214

== ENCOUNTER → 2022-10-16 15:00 | Outpatient (BNVA) | payer MEDICARE, MEDICAID, SELFPAY | PROVIDERS: PCP Physician Assistant Medical; Visit Provider Anesthesiology | DX: Z51.81 Encounter for therapeutic drug level monitoring (principal); F11.20 Opioid dependence, uncomplicated; K57.20 Diverticulitis of large intestine with perforation and abscess without bleeding; K27.9 Peptic ulcer, site unspecified, unspecified as acute or chronic, without hemorrhage or perforation; F32.9 Major depressive disorder, single episode, unspecified; G89.4 Chronic pain syndrome; Z98.890 Other specified postprocedural states | CPT/HCPCS: 99212 ==

== ENCOUNTER 2022-11-18 14:26 | Outpatient (AMB) | payer MEDICARE, MEDICAID, SELFPAY ==
--- NOTE | 2022-11-18 14:28 | A.OFFVIS_ITS ---
Intake Vital Signs 11/18/22 14:43 Height 5 ft 4 in Weight 147 lb 6 oz BMI 25.3 BP 106/58 L Blood Pressure Location Lt brachial Position Sitting Respiration 16 Pulse 91 Pulse Source Pulse Oximeter Pulse Oximetry (%) 96 Oxygen Delivery Method Room Air Intake Visit Reasons: Med count Intake Note: patient comes in for pill count. Allergies Sulfa (Sulfonamide Antibiotics) [SULFA (SULFONAMIDE ANTIBIOTICS)] Allergy (Unknown, Verified 11/18/22 14:44) UNKNOWN HPI HPI Comments History of Present Illness Details is in the office today to refill her opioid medications and the discuss further management.? She presented for the film count.She presented today with 7 films of fentanyl patches 100 mcg? she suppose to have 6 patches , and she suppose to have 7 patches of the fentanyl 25 mcg? she also presented 6 patches. She reports her pain today as 5/10. She reports success with weaning on TPN. She has an appointment with her surgeon Dr. Mcintyre tomorrow. Therefore her pain count to correct. She continues to be under observation abdominal surgery team at the [facility]. She is reduced with her TPN to every other night she is taking more oral food. Prior: ?She had multiple abdominal surgeries.? This resulted in abdominal abscess and resection of the larger portions of extend did intestines.? 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 She cannot consume foot over the mouth.? She is taking TPN tube feeds.? She is able to take opioids transdermal.? ?H/o compressions fracture of T7 - untreated due to high risk of the infection. She is under care of Dr. Mcintyre, general surgeon from [facility]. [facility] Medical History (Updated 09/19/22 @ 07:33 by Farhat Julien MD) Colostomy in place Failed back syndrome, lumbar Surgical History (Updated 01/30/21 @ 15:10 by Selvin Parikh DO) History of abdominal surgery History of cystoscopy History of endometriosis History of liver injury History of lumbar surgery History of lumbar surgery History of mandibular surgery History of surgery Family History (Updated 02/01/20 @ 11:30 by SANDY Omer) Father Lung cancer Mother COPD (chronic obstructive pulmonary disease) CAD (coronary artery disease) CHF (congestive heart failure) Diabetes Sister Automobile accident Son Autoimmune disease Social History (Updated 02/15/20 @ 14:06 by Selvin Parikh DO) Household Members Other:: 16 yo son Current occupation: unable to work since 12/2018 Review of Systems Const All systems reviewed & are unremarkable except as noted in HPI and below Physical Exam Vital Signs: Last Vital Signs Pulse 91 11/18/22 14:43 Resp 16 11/18/22 14:43 BP 106/58 L 11/18/22 14:43 Pulse Ox 96 11/18/22 14:43 Oxygen Delivery Method Room Air 11/18/22 14:43 BMI result Body Mass Index 25.3 Const General: comfortable, no acute distress, well developed, alert and awake Eyes Pupils: Equal, round and reactive pupils present EOM: EOMs intact bilaterally Chest Chest palpation & inspection: normal inspection of the chest Resp Effort & Inspection: normal respiratory effort, able to speak in complete sentences, normal respiratory pattern, no audible wheezes and no cough Cardio Jugular venous distension: no JVD GI Inspection: No normal to inspection, Yes G-tube present, Yes J-tube present and Yes other (Collection bag which is draining fistula on the anterior abdomen right to t) Back/Spine/Pelvis Other: tenderness on palpation in paraspinal spinal region in lumbar spine and cervical spine, most severe tenderness of palpation in the projection of the thoracic spine in the T7 approximate interval. Percussion of the approximate T7 vertebra is painful. Loading test is positive. Range of motion in lumbar spine is limited [place] test is negative bilaterally. Neuro Cranial nerves: Yes Equal, round and reactive pupils present Psych Speech and movement: Normal speech and movement present Affect: normal affect Attitude: cooperative Thought process: Normal thought process present Thought content: Normal thought content present Insight: Good insight present (Psych) Judgement: Good judgement present (Psych) Assessment & Plan Assessment & Plan (1) Perforated diverticulum of large intestine: Code(s): K57.20 - Diverticulitis of large intestine with perforation and abscess without bleeding (2) PUD (peptic ulcer disease): Code(s): K27.9 - Peptic ulcer, site unspecified, unspecified as acute or chronic, without hemorrhage or perforation (3) History of lumbar surgery: Code(s): Z98.890 - Other specified postprocedural states (4) History of abdominal surgery: Code(s): Z98.890 - Other specified postprocedural states (5) Depression: Code(s): F32.9 - Major depressive disorder, single episode, unspecified (6) Chronic pain syndrome: Code(s): G89.4 - Chronic pain syndrome Plan This patient presents a challenge for current management since her opioid doses are exuberant and close to 500 of MME. We are going to continue with 125 mcg an hour fentanyl patch comprised of 2 patches 1 is 100 the other is 25. She had one surgery to close one GI fistula and yet anothe one needs to be closed few weeks ahead. She almost converted from TPN to oral foot intake. Her fistula continues to drain bile and hymus. Tomorrow she will have an appointment with her surgeon. I will continue her opioid medications. they are due on 12/07/2022 Medications: Refilled fentanyl 25 mcg/hr Partial Fill only upon patient request. 1 patch transdermal Q72H 10 ea 0RF 30 days fentanyl 100 mcg/hr 1 patch topical Q72H 10 ea 0RF 30 days M96.1 - Postlaminectomy syndrome, not elsewhere classified, Z93.3 - Colostomy status Coding Level of Care Code Est Pt Level 3 (20173) Diagnoses Perforated diverticulum of large intestine K57.20 PUD (peptic ulcer disease) K27.9 History of lumbar surgery Z98.890 History of abdominal surgery Z98.890 Depression F32.9 Chronic pain syndrome G89.4
[2022-11-18 14:43] VITALS: BP 106/58; PULSE 91; RESP 16; O2SAT 96; BMI 25.3
== END 2022-11-18 14:48 | disposition home or self-care (01) ==
PROVIDERS: PCP Physician Assistant Medical; Visit Provider Anesthesiology
DX: K57.20 Diverticulitis of large intestine with perforation and abscess without bleeding (principal); K27.9 Peptic ulcer, site unspecified, unspecified as acute or chronic, without hemorrhage or perforation; Z98.890 Other specified postprocedural states; F32.9 Major depressive disorder, single episode, unspecified; G89.4 Chronic pain syndrome
CPT/HCPCS: 99213

== ENCOUNTER → 2022-11-18 14:26 | Outpatient (BNVA) | payer MEDICARE, MEDICAID, SELFPAY | PROVIDERS: PCP Physician Assistant Medical; Visit Provider Anesthesiology | DX: G89.4 Chronic pain syndrome (principal); K91.2 Postsurgical malabsorption, not elsewhere classified; K57.20 Diverticulitis of large intestine with perforation and abscess without bleeding; K27.9 Peptic ulcer, site unspecified, unspecified as acute or chronic, without hemorrhage or perforation; M96.1 Postlaminectomy syndrome, not elsewhere classified; F32.A Depression, unspecified; Z93.3 Colostomy status; Z98.890 Other specified postprocedural states | CPT/HCPCS: 99212 ==

== ENCOUNTER 2022-12-16 13:59 | Outpatient (AMB) | payer MEDICARE, MEDICAID, SELFPAY ==
--- NOTE | 2022-12-16 14:01 | A.OFFVIS_ITS ---
Intake Vital Signs 12/16/22 14:15 Height 5 ft 4 in Weight 141 lb BMI 24.2 BP 112/80 Blood Pressure Location Lt brachial Position Sitting Respiration 16 Pulse 91 Pulse Source Pulse Oximeter Pulse Oximetry (%) 97 Oxygen Delivery Method Room Air Intake Visit Reasons: Med count Intake Note: patient comes in for pill count. Allergies Sulfa (Sulfonamide Antibiotics) [SULFA (SULFONAMIDE ANTIBIOTICS)] Allergy (Unknown, Verified 12/16/22 14:07) UNKNOWN HPI HPI Comments History of Present Illness Details is in the office today to refill her opioid medications.? She presented for the film count.She presented today with 10 films of fentanyl patches 100 mcg? she suppose to have 10 patches , and she suppose to have 10 patches of the fentanyl 25 mcg? she also presented 10 patches. She reports her pain today as 4/10. She reports success with weaning on TPN. Therefore her pain count to correct. She continues to be under observation abdominal surgery team at the [facility]. She is reduced with her TPN to every other night she is taking more oral food. Prior: ?She had multiple abdominal surgeries.? This resulted in abdominal abscess and resection of the larger portions of extend did intestines.? 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 She cannot consume foot over the mouth.? She is taking TPN tube feeds.? She is able to take opioids transdermal.? ?H/o compressions fracture of T7 - untreated due to high risk of the infection. She is under care of Dr. Mcintyre, general surgeon from [facility]. [facility] Medical History (Updated 09/19/22 @ 07:33 by Farhat Julien MD) Failed back syndrome, lumbar Colostomy in place Surgical History (Updated 01/30/21 @ 15:10 by Selvin Parikh DO) History of abdominal surgery History of lumbar surgery History of mandibular surgery History of surgery History of endometriosis History of liver injury History of cystoscopy History of lumbar surgery Family History (Updated 02/01/20 @ 11:30 by SANDY Omer) Father Lung cancer Mother COPD (chronic obstructive pulmonary disease) CAD (coronary artery disease) CHF (congestive heart failure) Diabetes Sister Automobile accident Son Autoimmune disease Social History (Updated 02/15/20 @ 14:06 by Selvin Parikh DO) Household Members Other:: 16 yo son Current occupation: unable to work since 12/2018 Review of Systems Const All systems reviewed & are unremarkable except as noted in HPI and below Physical Exam Vital Signs: Last Vital Signs Pulse 91 12/16/22 14:15 Resp 16 12/16/22 14:15 BP 112/80 12/16/22 14:15 Pulse Ox 97 12/16/22 14:15 Oxygen Delivery Method Room Air 12/16/22 14:15 BMI result Body Mass Index 24.2 Const General: comfortable, no acute distress, well developed, alert and awake Eyes Pupils: Equal, round and reactive pupils present EOM: EOMs intact bilaterally Chest Chest palpation & inspection: normal inspection of the chest Resp Effort & Inspection: normal respiratory effort, able to speak in complete sentences, normal respiratory pattern, no audible wheezes and no cough Cardio Jugular venous distension: no JVD GI Inspection: No normal to inspection, Yes G-tube present, Yes J-tube present and Yes other (Collection bag which is draining fistula on the anterior abdomen right to t) Back/Spine/Pelvis Other: tenderness on palpation in paraspinal spinal region in lumbar spine and cervical spine, most severe tenderness of palpation in the projection of the thoracic spine in the T7 approximate interval. Percussion of the approximate T7 vertebra is painful. Loading test is positive. Range of motion in lumbar spine is limited [place] test is negative bilaterally. Neuro Cranial nerves: Yes Equal, round and reactive pupils present Psych Speech and movement: Normal speech and movement present Affect: normal affect Attitude: cooperative Thought process: Normal thought process present Thought content: Normal thought content present Insight: Good insight present (Psych) Judgement: Good judgement present (Psych) Assessment & Plan Assessment & Plan (1) Perforated diverticulum of large intestine: Code(s): K57.20 - Diverticulitis of large intestine with perforation and abscess without bleeding (2) PUD (peptic ulcer disease): Code(s): K27.9 - Peptic ulcer, site unspecified, unspecified as acute or chronic, without hemorrhage or perforation (3) History of lumbar surgery: Code(s): Z98.890 - Other specified postprocedural states (4) History of abdominal surgery: Code(s): Z98.890 - Other specified postprocedural states (5) Depression: Code(s): F32.9 - Major depressive disorder, single episode, unspecified (6) Chronic pain syndrome: Code(s): G89.4 - Chronic pain syndrome Plan This patient presents a challenge for current management since her opioid doses are exuberant and close to 500 of MME. We are going to continue with 125 mcg an hour fentanyl patch comprised of 2 patches 1 is 100 the other is 25. She had one surgery to close one GI fistula and yet anothe one needs to be closed few weeks ahead. She almost converted from TPN to oral foot intake. Her fistula continues to drain bile and hymus. She is scheduled for new surgery in January. She is trying to make an appointment for that surgery to be moved closer to today. Medications: Refilled fentanyl 25 mcg/hr Partial Fill only upon patient request. 1 patch transdermal Q72H 30 days 10 ea 0RF fentanyl 100 mcg/hr 1 patch topical Q72H 30 days 10 ea 0RF M96.1 - Postlaminectomy syndrome, not elsewhere classified, Z93.3 - Colostomy status Coding Level of Care Code Est Pt Level 3 (51275) Diagnoses Perforated diverticulum of large intestine K57.20 PUD (peptic ulcer disease) K27.9 History of lumbar surgery Z98.890 History of abdominal surgery Z98.890 Depression F32.9 Chronic pain syndrome G89.4
[2022-12-16 14:15] VITALS: BP 112/80; PULSE 91; RESP 16; O2SAT 97; BMI 24.2
== END 2022-12-16 14:18 | disposition home or self-care (01) ==
PROVIDERS: PCP Physician Assistant Medical; Visit Provider Anesthesiology
DX: G89.4 Chronic pain syndrome (principal); K57.20 Diverticulitis of large intestine with perforation and abscess without bleeding; K27.9 Peptic ulcer, site unspecified, unspecified as acute or chronic, without hemorrhage or perforation; Z98.891 History of uterine scar from previous surgery; F32.9 Major depressive disorder, single episode, unspecified
CPT/HCPCS: 99213

== ENCOUNTER → 2022-12-16 13:59 | Outpatient (BNVA) | payer MEDICARE, MEDICAID, SELFPAY | PROVIDERS: PCP Physician Assistant Medical; Visit Provider Anesthesiology | DX: Z51.81 Encounter for therapeutic drug level monitoring (principal); F11.20 Opioid dependence, uncomplicated | CPT/HCPCS: 99212 ==